=== PATIENT | male | born 1965 | race Caucasian/White ===

== ENCOUNTER 2020-11-14 22:08 | Emergency (ER) | payer MEDICAID, MEDICARE ==
[2020-11-14] MEDS ORDERED: Albuterol/Ipratropium 3.0-0.5 MG/3 ML Neb Soln NEB STA (22:24)
[2020-11-14] MEDS ORDERED: methylPREDNISolone Sodium Succinate 125 MG/2 ML SDV IM STA (22:24)
[2020-11-14] MEDS ORDERED: Cyclobenzaprine 10 MG Tab PO STA (22:43)
[2020-11-14] MEDS ORDERED: Ketorolac 60 MG/2 ML SDV IM STA (22:43)
--- NOTE | 2020-11-14 23:12 | EDM.PDOC ---
ED HPI GENERAL MEDICAL PROBLEM - General Stated Complaint: SOB Time Seen by Provider: 11/14/20 22:15 Source of Information: Reports: Patient History Limitations: Reports: No Limitations - History of Present Illness INITIAL COMMENTS - FREE TEXT/NARRATIVE: Patient presented to the ED because of cough and dyspnea for many years which got worse today. He started smoking 1-2 PPD since he was 3 years old and decided to just smoke 10 cigarettes a day 1 week ago. The cough is mostly dry, no fever or chills. He also c/o low back pain,chronic,02/18. - Related Data Allergies Allergy/AdvReac Type Severity Reaction Status Date / Time No Known Allergies Allergy Verified 11/14/20 22:23 Home Meds: Home Meds Albuterol [Ventolin HFA] 2 puff INH Q4H PRN #1 inhaler 11/14/20 [Rx] Azithromycin [Zithromax] 250 mg PO DAILY #6 tablet 11/14/20 [Rx] Cyclobenzaprine [Flexeril] 10 mg PO TID PRN #30 tab 11/14/20 [Rx] Ibuprofen 800 mg PO Q8H PRN #30 tablet 11/14/20 [Rx] predniSONE [Prednisone] 40 mg PO DAILY #10 tablet 11/14/20 [Rx] ED ROS GENERAL - Review of Systems Review Of Systems: See Below Constitutional: Reports: No Symptoms HEENT: Reports: No Symptoms Respiratory: Reports: Shortness of Breath, Wheezing Cardiovascular: Reports: No Symptoms Endocrine: Reports: No Symptoms GI/Abdominal: Reports: No Symptoms : Reports: No Symptoms Musculoskeletal: Reports: Back Pain Skin: Reports: No Symptoms Neurological: Reports: No Symptoms Psychiatric: Reports: No Symptoms ED EXAM, GENERAL - Physical Exam Exam: See Below Exam Limited By: No Limitations General Appearance: Alert, No Apparent Distress Eye Exam: Bilateral Eye: PERRL Ears: Normal External Exam, Normal Canal Nose: Normal Inspection, Normal Mucosa, No Blood Throat/Mouth: Normal Inspection, Normal Lips Head: Atraumatic, Normocephalic Neck: Normal Inspection, Supple, Non-Tender Respiratory/Chest: No Respiratory Distress, Decreased Breath Sounds, Wheezing Cardiovascular: Normal Peripheral Pulses, Regular Rate, Rhythm, No Edema, No Gallop, No JVD, No Murmur, No Rub GI/Abdominal: Normal Bowel Sounds, Soft, Non-Tender, No Organomegaly Back Exam: Normal Inspection, Full Range of Motion Extremities: Normal Inspection, Normal Range of Motion, Non-Tender, No Pedal Edema, Normal Capillary Refill Neurological: Alert, CN II-XII Intact Psychiatric: Normal Affect Skin Exam: Warm Course - Vital Signs Text/Narrative:: Solumedrol 125 mg IM x1 Duoneb x1 Toradol 60 mg IM x 1 Flexeril 10 mg PO x1 Last Recorded V/S: Last Vital Signs Temp 36.8 C 11/14/20 22:10 Pulse 81 11/14/20 22:10 Resp 18 11/14/20 22:10 BP 158/71 H 11/14/20 22:10 Pulse Ox 97 11/14/20 22:10 - Orders/Labs/Meds Orders: Active Orders 24 hr Category Date Time Status RT Aerosol Therapy [RC] ASDIRECTED Care 11/14/20 22:24 Active Meds: Medications Discontinued Medications Generic Name Dose Route Start Last Admin Trade Name Freq PRN Reason Stop Dose Admin Albuterol/Ipratropium 3 ml 11/14/20 22:24 11/14/20 22:53 Albuterol/Ipratropium 3.0-0.5 Mg/3 Ml Neb Soln NEB 11/14/20 22:25 3 ml NOW STA Administration Cyclobenzaprine HCl 10 mg 11/14/20 22:43 11/14/20 22:54 Cyclobenzaprine 10 Mg Tab PO 11/14/20 22:44 10 mg NOW STA Administration Ketorolac Tromethamine 60 mg 11/14/20 22:43 11/14/20 22:53 Ketorolac 60 Mg/2 Ml Sdv IM 11/14/20 22:44 60 mg NOW STA Administration Methylprednisolone Sodium Succinate 125 mg 11/14/20 22:24 11/14/20 22:53 Methylprednisolone Sodium Succinate 125 Mg/2 Ml Sdv IM 11/14/20 22:25 125 mg NOW STA Administration Departure - Departure Time of Disposition: 23:30 Disposition: Home, Self-Care 01 Condition: Good Clinical Impression: COPD exacerbation, Chronic low back pain - Discharge Information Prescriptions: Cyclobenzaprine [Flexeril] 10 mg PO TID PRN #30 tab PRN Reason: Spasms Ibuprofen 800 mg PO Q8H PRN #30 tablet PRN Reason: Pain predniSONE [Prednisone] 40 mg PO DAILY #10 tablet Albuterol [Ventolin HFA] 2 puff INH Q4H PRN #1 inhaler PRN Reason: Shortness Of Breath Azithromycin [Zithromax] 250 mg PO DAILY #6 tablet Referrals: Timi Cespedes PA-C [Primary Care Provider] - Additional Instructions: Please read discharge instructions on URI and COPD Increase oral fluids Z-carlos as directed Prednisone, 20 mg,take 2 tablets daily for 5 days Albuterol inhaler 2 puffs every 4 hours as needed for shortness of breath Take the following medications for your low back pain: Ibuprofen 800 mg,tylenol 100 mg, flexeril 10 mg asevery 8 hours as needed for back pain and spasm follow up as needed Sepsis Event Note (ED) - Evaluation Sepsis Screening Result: No Definite Risk - Focused Exam Vital Signs: Vital Signs Temp Pulse Resp BP Pulse Ox 11/14/20 22:10 36.8 C 81 18 158/71 H 97 - My Orders Last 24 Hours: My Active Orders 11/14/20 22:24 RT Aerosol Therapy [RC] ASDIRECTED - Assessment/Plan Last 24 Hours: My Active Orders 11/14/20 22:24 RT Aerosol Therapy [RC] ASDIRECTED
== END 2020-11-14 23:40 | disposition home or self-care (01) ==
LOC: FB.ED 22:08
DX: J44.1 Chronic obstructive pulmonary disease with (acute) exacerbation (principal); G89.29 Other chronic pain; M54.5 Low back pain; F17.210 Nicotine dependence, cigarettes, uncomplicated
CPT/HCPCS: 94640; 96372; 99282; 99285; A9270; J1885; J2930; J7620-GY